=== PATIENT | female | born 1960 | race African-American/Black ===

== ENCOUNTER 2016-09-12 16:08 | Emergency (ER) | payer OTHER ==
[2016-09-12 16:16] VITALS: BMI 49.2
[2016-09-12 18:14] VITALS: BP 207/96
== END 2016-09-12 19:45 | disposition left against medical advice (07) ==
LOC: MERGE 16:24 → ER 16:24
DX: R03.0 Elevated blood-pressure reading, without diagnosis of hypertension (principal)
CPT/HCPCS: 99281

== ENCOUNTER 2016-09-18 11:27 | Observation (INO) | payer OTHER, MEDICAID ==
[2016-09-18] MEDS ORDERED: NORMODYNE INJ 20 MG VIAL IVP PRN (13:38)
[2016-09-18] MEDS: NS 1000 ML 1,000 ML IV SCH (13:52)
[2016-09-18 14:20] LABS: BASOPHILS # (AUTO) 0.1 X10^3/uL (0.0-0.1); BASOPHILS % (AUTO) 1.4 % (0.2-1.0); EOSINOPHILS # (AUTO) 0.3 x10^3/uL (0.0-0.2); HEMATOCRIT 37.2 % (36.0-47.0); HEMOGLOBIN 12.3 g/dL (12.0-16.0); LYMPHOCYTES # (AUTO) 2.4 X10^3/uL (1.3-2.9); LYMPHOCYTES % (AUTO) 34.6 % (21.0-51.0); MEAN CORPUSCULAR HEMOGLOBIN 24.1 pg (27.0-34.0); MEAN CORPUSCULAR HGB CONC 33.2 g/dL (33.0-35.0); MEAN CORPUSCULAR VOLUME 72.4 fL (80.0-100.0); MEAN PLATELET VOLUME 8.6 fL (7.4-11.0); MONOCYTES # (AUTO) 0.6 x10^3/uL (0.3-0.8); MONOCYTES % (AUTO) 9.2 % (0.0-13.0); NEUTROPHILS # (AUTO) 3.4 x10^3/uL (2.2-4.8); NEUTROPHILS % (AUTO) 49.8 % (42.0-75.0); PLATELET COUNT 302 X10^3/uL (150.0-450.0); RED BLOOD COUNT 5.13 X10^6/uL (3.5-5.4); RED CELL DISTRIBUTION WIDTH 17.9 % (11.6-16.5); WHITE BLOOD COUNT 6.9 X10^3/uL (3.6-10.0)
[2016-09-18 14:29] VITALS: BMI 46.8
[2016-09-18] MEDS ORDERED: PATIENT'S HOME MEDICATION (Albuterol Sulfate [Proair Hfa] 1 PUFF) INH PRN (14:29)
[2016-09-18 14:41] LABS: ALANINE AMINOTRANSFERASE 41 Units/L (12-78); ALBUMIN 3.4 g/dL (3.4-5.0); ALKALINE PHOSPHATASE 134 Units/L (46-116); ASPARTATE AMINO TRANSFERASE 22 Units/L (15-37); BLOOD UREA NITROGEN 11 mg/dL (7-18); CALCIUM 9.5 mg/dL (8.5-10.1); CARBON DIOXIDE 28.6 mmol/L (21-32); CHLORIDE 104 mmol/L (98-107); CKMB % 1.2 % (<4); COR NA(FOR HYPERGLY) 138 mmol/L (136-145); CREATINE KINASE 87 Units/L (26-192); CREATINE KINASE MB < 1.0 ng/mL (0-4.0); CREATININE 0.78 mg/dL (0.55-1.02); GLUCOSE 151 mg/dL (65-99); SODIUM 137 mmol/L (136-145); TOTAL PROTEIN 8.6 g/dL (6.4-8.2); TROPONIN I < 0.02 ng/mL (0-1.5); eGFR BLACK RACES > 60 (>60); eGFR NON BLACK RACES > 60 (>60)
--- NOTE | 2016-09-18 14:44 | DR.UPDATE ---
H&P Update History and Physical Update: History and Physical reviewed and patient examined. Changes noted: NO Yes with the following: Patient admitted with diagnosis of Chest pain, Shortness of Breath, Dizziness, Hypertension started on NS @75, Labs serial cardiac enzymes and EKG, CXR and ECHO. Home medications resumed including Proair inhaler 1 puf PRN, Zocor 40mg at bedtime, Mobic 15mg daily, Lisinopril 5mg daily, glimepiride 4mg daily, Amoxil 500mg BID, With the addition of Metofrmin 1000mg BID, Labetalol 10mg IV Q15 PRN Hypertension
[2016-09-18 14:50] LABS: PLATELET MORPHOLOGY COMMENT NORMAL (NORMAL)
[2016-09-18] MEDS ORDERED: PROVENTIL NEB TX 0.083% 2.5MG/ 3ML NEB PRN (14:50)
[2016-09-18 14:51] LABS: ANISOCYTOSIS SLIGHT; HYPOCHROMASIA SLIGHT; MICROCYTOSIS SLIGHT
[2016-09-18 15:11] LABS: ERYTHROCYTE SEDIMENTATION RATE 40 MM/HOUR (0-20)
[2016-09-18 18:10] LABS: CKMB % 1.1 % (<4); CREATINE KINASE 88 Units/L (26-192); CREATINE KINASE MB < 1.0 ng/mL (0-4.0); TROPONIN I < 0.02 ng/mL (0-1.5)
--- NOTE | 2016-09-18 18:19 | RAD ---
HISTORY: Chest pain Study: PA and lateral chest Comparison: None Findings: The trachea is midline. The cardiac silhouette is unremarkable. The lungs are clear without focal infiltrate or effusion. The bony thorax is unremarkable. IMPRESSION: 1. No acute cardiopulmonary disease. Reported By:
[2016-09-18] MEDS ORDERED: GLUCOPHAGE ONE (20:23)
[2016-09-18] MEDS: AMOXIL CAP 500 MG PO SCH (20:31)
[2016-09-18] MEDS: GLUCOPHAGE PO SCH (20:31)
[2016-09-18] MEDS: ZOCOR TAB 40 MG PO SCH (20:31)
[2016-09-18 21:43] LABS: CKMB % 0.8 % (<4); CREATINE KINASE 128 Units/L (26-192); CREATINE KINASE MB < 1.0 ng/mL (0-4.0); TROPONIN I < 0.02 ng/mL (0-1.5)
[2016-09-19] MEDS: NS 1000 ML 1,000 ML IV SCH ×2 (04:07→18:51)
[2016-09-19 06:08] LABS: BASOPHILS # (AUTO) 0.1 X10^3/uL (0.0-0.1); BASOPHILS % (AUTO) 1.2 % (0.2-1.0); EOSINOPHILS # (AUTO) 0.4 x10^3/uL (0.0-0.2); EOSINOPHILS % (AUTO) 4.7 % (0.9-2.9); HEMATOCRIT 38.1 % (36.0-47.0); HEMOGLOBIN 12.5 g/dL (12.0-16.0); LYMPHOCYTES # (AUTO) 2.8 X10^3/uL (1.3-2.9); LYMPHOCYTES % (AUTO) 35.9 % (21.0-51.0); MEAN CORPUSCULAR HEMOGLOBIN 23.9 pg (27.0-34.0); MEAN CORPUSCULAR HGB CONC 32.8 g/dL (33.0-35.0); MEAN PLATELET VOLUME 8.9 fL (7.4-11.0); MONOCYTES # (AUTO) 0.7 x10^3/uL (0.3-0.8); MONOCYTES % (AUTO) 9.3 % (0.0-13.0); NEUTROPHILS # (AUTO) 3.8 x10^3/uL (2.2-4.8); NEUTROPHILS % (AUTO) 48.9 % (42.0-75.0); PLATELET COUNT 283 X10^3/uL (150.0-450.0); RED BLOOD COUNT 5.23 X10^6/uL (3.5-5.4); RED CELL DISTRIBUTION WIDTH 17.8 % (11.6-16.5); WHITE BLOOD COUNT 7.7 X10^3/uL (3.6-10.0)
--- NOTE | 2016-09-19 06:24 | RAD ---
HISTORY: Chest pain Study: Chest two-view Comparison: September 18, 2016 Findings: The trachea is midline. The cardiac silhouette is unremarkable. The lungs are clear without focal infiltrate or effusion. The bony thorax is unremarkable. IMPRESSION: 1. No acute cardiopulmonary disease. Reported By:
[2016-09-19 06:42] LABS: ALANINE AMINOTRANSFERASE 40 Units/L (12-78); ALBUMIN 3.3 g/dL (3.4-5.0); ALKALINE PHOSPHATASE 127 Units/L (46-116); ASPARTATE AMINO TRANSFERASE 28 Units/L (15-37); BLOOD UREA NITROGEN 9 mg/dL (7-18); CALCIUM 9.1 mg/dL (8.5-10.1); CARBON DIOXIDE 22.4 mmol/L (21-32); CHLORIDE 104 mmol/L (98-107); COR CA(FOR HYPOALB) 9.7 mg/dL (8.5-10.1); COR NA(FOR HYPERGLY) 140 mmol/L (136-145); CREATININE 0.66 mg/dL (0.55-1.02); GLUCOSE 150 mg/dL (65-99); SODIUM 139 mmol/L (136-145); TOTAL PROTEIN 8.6 g/dL (6.4-8.2); eGFR BLACK RACES > 60 (>60); eGFR NON BLACK RACES > 60 (>60)
[2016-09-19 06:58] LABS: ANISOCYTOSIS SLIGHT; HYPOCHROMASIA 1+; PLATELET MORPHOLOGY COMMENT NORMAL (NORMAL)
[2016-09-19 07:20] LABS: ERYTHROCYTE SEDIMENTATION RATE 39 MM/HOUR (0-20)
[2016-09-19] MEDS ORDERED: GLUCOPHAGE ONE ×2 (08:36→21:15)
[2016-09-19] MEDS: MOBIC TAB 15 MG PO SCH (08:42)
[2016-09-19] MEDS: AMOXIL CAP 500 MG PO SCH ×2 (08:42→21:25)
[2016-09-19] MEDS: GLUCOPHAGE PO SCH ×2 (08:43→21:26)
[2016-09-19] MEDS: AMARYL TAB 4 MG PO SCH (08:44)
[2016-09-19] MEDS: ZESTRIL TAB 10 MG PO SCH (08:49)
[2016-09-19] MEDS ORDERED: ZESTRIL TAB 5 MG PO SCH (09:00)
[2016-09-19 10:24] LABS: CKMB % 1.2 % (<4); CREATINE KINASE 84 Units/L (26-192); CREATINE KINASE MB < 1.0 ng/mL (0-4.0); TROPONIN I < 0.02 ng/mL (0-1.5)
--- NOTE | 2016-09-19 10:44 | PCM.PROG ---
Progress Note - Progress Note for Day of Date: 09/19/16 - Subjective Subjective: Patient is a 56yo female who presented to the hospital as a direct admit with diagnosis of Chest Pain, Hypertension, Shortness of Breath and Dizziness. Pateint states she is feeling better this am. Her blood pressure was 173/97 on arrival her Lisinopril was increased to 10mg yesterday from her regular home dose of 5mg. She did not have to receive any labetalol IV and her blood pressure is 129/74 this am . We are going to continue to monitor patient one more day and repeat serial cardiac enzymes and EKG. Cardiac profile and EKGs have been normal so far. Vital signs 98.0, 68, 18,. 100%, 129/64. Labs are within normal limits with the exception of MCV 73, MCH 23.9. MCHC 32.8, RDW 17.8 , Eos% 4.7, Baso% 1.2, Eos# 0.4, RBC Morphology Abnormal A, Hypochromasia 1+A, Anisocytosis Slight A, ESR 39, Glucose 151, Alkaline Phosphate 127, CRP 26.30, Total protein 8.6, Albumin 3.3, Globulin 5.3, Albumin/Globulin Ratio 0.6. ECHO showed an Ejection fracture of 64%. Chest Xray showed no acute cardiopulmonary disease. We are also going to set patient up with a stress test as an outpatient to further workup the chest pain. - Past Medical Family Social History Past Med/Fam/Surg Hx: No changes since H&P Allergies: Allergies No Known Drug Allergy Allergy (Verified 09/18/16 13:38) - Review of Systems ROS: No change since H&P - Vital Signs and I&O's Vital Signs: Temperature 98 F Pulse Rate [Right Brachial] 68 Respiratory Rate 18 Blood Pressure [Left Arm] 129/64 O2 Sat by Pulse Oximetry 100 Intake and Output: Intake & Output 09/16/16 09/17/16 09/18/16 09/19/16 11:59 11:59 11:59 11:59 Intake Total 1950 Balance 1949 - Physical Exam Oriented: Normal Eyes: Normal Ear: Normal Nose: Normal Throat: Normal Respiratory: Normal Cardiovascular: Normal : Normal Auscultation: Bowel Sounds: Normal Palpation: Normal Tenderness: Normal Skin: Normal Musculoskeletal: Normal Psychiatric: Normal Mood Description: Calm Affect: Normal Speech Pattern: Clear, Appropriate - Laboratory and Diagnostics Result Diagrams: 09/19/16 05:27 09/19/16 05:27 Labs: Laboratory WBC 7.7 X10^3/uL (3.6-10.0) 09/19/16 05:27 RBC 5.23 X10^6/uL (3.5-5.4) 09/19/16 05:27 Hgb 12.5 g/dL (12.0-16.0) 09/19/16 05:27 Hct 38.1 % (36.0-47.0) 09/19/16 05:27 MCV 73.0 fL (80.0-100.0) L 09/19/16 05:27 MCH 23.9 pg (27.0-34.0) L 09/19/16 05:27 MCHC 32.8 g/dL (33.0-35.0) L 09/19/16 05:27 RDW 17.8 % (11.6-16.5) H 09/19/16 05:27 Plt Count 283 X10^3/uL (150.0-450.0) 09/19/16 05:27 Plt Count Comment Adequate (ADEQUATE) 09/19/16 05:27 MPV 8.9 fL (7.4-11.0) 09/19/16 05:27 Neut % 48.9 % (42.0-75.0) 09/19/16 05:27 Lymph % 35.9 % (21.0-51.0) 09/19/16 05:27 [place] % 9.3 % (0.0-13.0) 09/19/16 05:27 Eos % 4.7 % (0.9-2.9) H 09/19/16 05:27 Baso % 1.2 % (0.2-1.0) H 09/19/16 05:27 Neut # 3.8 x10^3/uL (2.2-4.8) 09/19/16 05:27 Lymph # 2.8 X10^3/uL (1.3-2.9) 09/19/16 05:27 [place] # 0.7 x10^3/uL (0.3-0.8) 09/19/16 05:27 Eos # 0.4 x10^3/uL (0.0-0.2) H 09/19/16 05:27 Baso # 0.1 X10^3/uL (0.0-0.1) 09/19/16 05:27 Absolute Nucleated RBC 0.0 /100WBC 09/19/16 05:27 Plt Morphology Comment Normal (NORMAL) 09/19/16 05:27 RBC Morphology Abnormal (NORMAL) A 09/19/16 05:27 Hypochromasia 1+ A 09/19/16 05:27 Anisocytosis Slight A 09/19/16 05:27 Microcytosis Slight A 09/18/16 13:52 ESR 39 MM/HOUR (0-20) H 09/19/16 05:27 Sodium 139 mmol/L (136-145) 09/19/16 05:27 Corrected Sodium 140 mmol/L (136-145) 09/19/16 05:27 Potassium 4.4 mmol/L (3.5-5.1) 09/19/16 05:27 Chloride 104 mmol/L (98-107) 09/19/16 05:27 Carbon Dioxide 22.4 mmol/L (21-32) 09/19/16 05:27 BUN 9 mg/dL (7-18) 09/19/16 05:27 Creatinine 0.66 mg/dL (0.55-1.02) 09/19/16 05:27 Est GFR (MDRD) Af Amer > 60 (>60) 09/19/16 05:27 Est GFR (MDRD) Non-Af > 60 (>60) 09/19/16 05:27 Glucose 150 mg/dL (65-99) H 09/19/16 05:27 Calcium 9.1 mg/dL (8.5-10.1) 09/19/16 05:27 Corrected Calcium 9.7 mg/dL (8.5-10.1) 09/19/16 05:27 Total Bilirubin 0.40 mg/dL (0.2-1.0) 09/19/16 05:27 AST 28 Units/L (15-37) 09/19/16 05:27 ALT 40 Units/L (12-78) 09/19/16 05:27 Alkaline Phosphatase 127 Units/L (46-116) H 09/19/16 05:27 Creatine Kinase 84 Units/L (26-192) 09/19/16 09:53 CK-MB (CK-2) < 1.0 ng/mL (0-4.0) 09/19/16 09:53 CK/CKMB % Calc 1.2 % (<4) 09/19/16 09:53 Troponin I < 0.02 ng/mL (0-1.5) 09/19/16 09:53 C-Reactive Protein 26.30 mg/L (0-3.0) H 09/19/16 05:27 Total Protein 8.6 g/dL (6.4-8.2) H 09/19/16 05:27 Albumin 3.3 g/dL (3.4-5.0) L 09/19/16 05:27 Globulin 5.3 g/dL (2.5-4.5) H 09/19/16 05:27 Albumin/Globulin Ratio 0.6 Ratio (1.1-2.1) L 09/19/16 05:27 Radiology Reviewed: Yes EKG Reviewed: Yes - Plan (1) Chest pain Status: Acute Qualifiers: Chest pain type: C Ischemic chest pain type: I Plan: serial cardiac enzymes and EKG contiue to monitor (2) Hypertension Status: Acute Qualifiers: Hypertension type: H Plan: labetalol IV PRN, Lisinopril 10mg PO Daily, continue to monitor (3) Diabetes mellitus, type 2 Status: Acute Qualifiers: Diabetes mellitus complication status: D Diabetes mellitus complication detail: D Diabetic retinopathy severity: D Proliferative retinopathy type: P Diabetes mellitus macular edema: D Diabetes mellitus terminal press operator insulin use : D Laterality: L Chronic kidney disease stage: C Plan: OTBS ACHS, resumed home medication metformin and glyburide
[2016-09-19 15:54] LABS: CKMB % 0.9 % (<4); CREATINE KINASE 114 Units/L (26-192); CREATINE KINASE MB < 1.0 ng/mL (0-4.0); TROPONIN I < 0.02 ng/mL (0-1.5)
[2016-09-19] MEDS ORDERED: SNACK - Diabetic Appropriate PO SCH (20:00)
[2016-09-19] MEDS: ZOCOR TAB 40 MG PO SCH (21:25)
[2016-09-19 22:15] LABS: CKMB % 0.8 % (<4); CREATINE KINASE 127 Units/L (26-192); CREATINE KINASE MB < 1.0 ng/mL (0-4.0); TROPONIN I < 0.02 ng/mL (0-1.5)
[2016-09-20 05:34] LABS: ALANINE AMINOTRANSFERASE 34 Units/L (12-78); ALBUMIN 2.9 g/dL (3.4-5.0); ALKALINE PHOSPHATASE 111 Units/L (46-116); ASPARTATE AMINO TRANSFERASE 19 Units/L (15-37); BLOOD UREA NITROGEN 8 mg/dL (7-18); CALCIUM 8.6 mg/dL (8.5-10.1); CARBON DIOXIDE 26.9 mmol/L (21-32); CHLORIDE 109 mmol/L (98-107); COR CA(FOR HYPOALB) 9.5 mg/dL (8.5-10.1); CREATININE 0.62 mg/dL (0.55-1.02); GLUCOSE 105 mg/dL (65-99); SODIUM 143 mmol/L (136-145); TOTAL PROTEIN 7.4 g/dL (6.4-8.2); eGFR BLACK RACES > 60 (>60); eGFR NON BLACK RACES > 60 (>60)
[2016-09-20 05:43] LABS: BASOPHILS # (AUTO) 0.1 X10^3/uL (0.0-0.1); BASOPHILS % (AUTO) 0.9 % (0.2-1.0); EOSINOPHILS # (AUTO) 0.3 x10^3/uL (0.0-0.2); EOSINOPHILS % (AUTO) 4.9 % (0.9-2.9); HEMATOCRIT 37.3 % (36.0-47.0); HEMOGLOBIN 12.2 g/dL (12.0-16.0); LYMPHOCYTES # (AUTO) 2.3 X10^3/uL (1.3-2.9); LYMPHOCYTES % (AUTO) 34.8 % (21.0-51.0); MEAN CORPUSCULAR HGB CONC 32.6 g/dL (33.0-35.0); MEAN CORPUSCULAR VOLUME 73.4 fL (80.0-100.0); MONOCYTES # (AUTO) 0.6 x10^3/uL (0.3-0.8); MONOCYTES % (AUTO) 8.9 % (0.0-13.0); NEUTROPHILS # (AUTO) 3.3 x10^3/uL (2.2-4.8); NEUTROPHILS % (AUTO) 50.5 % (42.0-75.0); PLATELET COUNT 256 X10^3/uL (150.0-450.0); RED BLOOD COUNT 5.09 X10^6/uL (3.5-5.4); RED CELL DISTRIBUTION WIDTH 17.8 % (11.6-16.5); WHITE BLOOD COUNT 6.6 X10^3/uL (3.6-10.0)
[2016-09-20] MEDS: NS 1000 ML 1,000 ML IV SCH ×2 (05:59→07:54)
[2016-09-20 06:14] LABS: ANISOCYTOSIS 2+; HYPOCHROMASIA 2+; PLATELET MORPHOLOGY COMMENT NORMAL (NORMAL); POIKILOCYTOSIS 1+
--- NOTE | 2016-09-20 06:30 | RAD ---
HISTORY: Chest pain Study: Chest one view Comparison: September 19, 2016 Findings: The trachea is midline. The cardiac silhouette is unremarkable. The lungs are clear without focal infiltrate or effusion. The bony thorax is unremarkable. IMPRESSION: 1. No acute cardiopulmonary disease. Reported By:
[2016-09-20 07:15] LABS: ERYTHROCYTE SEDIMENTATION RATE 28 MM/HOUR (0-20)
[2016-09-20 07:45] VITALS: BP 152/88
[2016-09-20] MEDS ORDERED: GLUCOPHAGE ONE (07:48)
[2016-09-20] MEDS: MOBIC TAB 15 MG PO SCH (07:52)
[2016-09-20] MEDS: GLUCOPHAGE PO SCH (07:53)
[2016-09-20] MEDS: AMARYL TAB 4 MG PO SCH (07:53)
[2016-09-20] MEDS: ZESTRIL TAB 10 MG PO SCH (07:53)
[2016-09-20] MEDS: AMOXIL CAP 500 MG PO SCH (07:53)
[2016-09-20] MEDS ORDERED: MILK OF MAGNESIA PO SCH (09:00)
--- NOTE | 2016-09-20 12:44 | DR.CARTERD ---
- Discharge Summary for: Discharge Summary for Date of:: 09/20/16 - Admission Date Date of Admission: 09/18/16 - Admission Diagnoses Admission Diagnosis: Chest Pain. Hypertension. Shortness of Breath. Dizziness. Hyperlipidemia. Arthritis. Diabetes Mellitus Type 2 - Discharge Date Discharge Date: 09/20/16 - Discharge Diagnoses Discharge Diagnosis: Chest Pain Hypertension Shortness of Breath Dizziness Hyperlipidemia Arthritis Diabetes Mellitus Type 2 - Hospital Course Hospital Course: Patient is a 56yo female who presented to the hospital as a direct admit with diagnosis of Chest Pain, Hypertension, Shortness of Breath and Dizziness. Pateint states she is feeling better this am. Her blood pressure was 173/97 on arrival her Lisinopril was increased to 10mg yesterday from her regular home dose of 5mg. She did not have to receive any labetalol IV during her stay and blood pressure has remained stable with blood pressure this am being 143/72. Patient had 2 sets of serial cardiac enzymes and EKG which were all normal. ECHO was performed and showed a 64% ejection fracture. Chest xray showed no acute cardiopulmonary disorders. We are going to discharge patient in stable condition. Labs this am are within normal limits with the exception of MCV 73.4 , MCH 24.0, MCHC 32.6, RDW 17.8, Eos% 4.9, Eos# 0.3, RBC Morphology Abnormal A, Hypochromasia 2+ A, Poikilocytosis 1+ A, Anisocytosis 2+A, ESR 28, Chloride 109 , Glucose 105, CRP 23.00, Albumin 2.9, Albumin/Globulin Ratio 0.6. She is going to continue her home medications with the exception of increasing Lisinopril 10mg daily and we are going to discontinue her Mobic and start ecotrin 325mg PO DAIly. Patient is to follow up with Tiffany MONTANO in 1 week. - Discharge Medications Discharge Medications: Albuterol Sulfate [Proair Hfa] 1 puff INH Q4H PRN 09/18/16 [History] Amoxicillin [AMOXIL CAP 500 MG *] 500 mg PO BID 09/18/16 [History] Cefdinir [OMNICEF CAP 300 mg *] 300 mg PO BID 09/18/16 [History] Clonidine HCl [CATAPRES 0.1 MG TAB *] 0.1 mg PO BID 09/18/16 [History] Glimepiride [Glimepiride 4 mg] 4 mg PO DAILY 09/18/16 [History] Simvastatin [ZOCOR 40 MG *] 40 mg PO HS 09/18/16 [History] Aspirin EC [ECOTRIN 325 MG *] 325 mg PO DAILY #30 tab 09/20/16 [Rx] Lisinopril [ZESTRIL *] 10 mg PO DAILY #30 tab 09/20/16 [Rx] - Discharge Disposition Discharge Disposition: Home follow up in 1 week
[2016-09-20] MEDS ORDERED: COLACE CAP 100 MG PO SCH (21:00)
== END 2016-09-20 12:00 | disposition home or self-care (01) ==
LOC: OBS 11:27
PROVIDERS: ADMIT Internal Medicine; ATTEND Internal Medicine
DX: R07.89 Other chest pain (principal); R06.02 Shortness of breath; R42 Dizziness and giddiness; I10 Essential (primary) hypertension; E11.65 Type 2 diabetes mellitus with hyperglycemia; R74.8 Abnormal levels of other serum enzymes; R79.82 Elevated C-reactive protein (CRP); R70.0 Elevated erythrocyte sedimentation rate
CPT/HCPCS: 36415; 71010; 71020; 80053; 82550; 82553; 84484; 85025; 85652; 86140; 93005; 93306; A4222; G0378; J3490